=== PATIENT | female | born 1955 | race Caucasian/White ===

== ENCOUNTER → 2018-04-21 09:06 | Outpatient (CLI) | payer BC, SELFPAY ==
[2018-04-21 09:46] LABS: Hemoglobin A1C 6.1 % (0.0-7.0)
[2018-04-21 10:07] LABS: Glucose,Random 122 mg/dL (70-110)
== END ==
PROVIDERS: Visit Provider Physician Assistant
DX: R73.01 Impaired fasting glucose (principal)
CPT/HCPCS: 36415; 82947; 83036

== ENCOUNTER → 2018-07-06 12:19 | Outpatient (CLI) | payer BC, SELFPAY ==
[2018-07-06 13:01] LABS: Hemoglobin A1C 6.3 % (0.0-7.0)
[2018-07-06 13:13] LABS: Cholesterol 234 mg/dL (140-200); Glucose,Fasting 120 mg/dL (60-105); HDL Cholesterol 58 mg/dL (29-89); LDL Cholesterol 128 mg/dL (0-130); Triglycerides 239 mg/dL (30-200); VLDL Cholesterol 48 mg/dL (0-40)
== END ==
PROVIDERS: PCP Family Medicine; Visit Provider Physician Assistant
DX: R73.02 Impaired glucose tolerance (oral) (principal); E78.5 Hyperlipidemia, unspecified
CPT/HCPCS: 36415; 80061; 82947; 83036

== ENCOUNTER → 2018-10-13 10:13 | Outpatient (CLI) | payer BC, SELFPAY ==
[2018-10-13 10:34] LABS: Hemoglobin A1C 6.3 % (0.0-7.0)
[2018-10-13 11:15] LABS: Alanine Aminotransferase 27 U/L (12-78); Albumin Level 3.6 gm/dL (3.4-5.0); Albumin/Globulin Ratio 1.1 (1.1-1.8); Alkaline Phosphatase 100 U/L (46-116); Anion Gap 12.6 mEq/L (5-15); Aspartate Amino Transferase 12 U/L (15-37); Bilirubin,Total 0.5 mg/dL (0.2-1.0); Blood Urea Nitrogen 18 mg/dL (7-18); Calcium 9.8 mg/dL (8.5-10.1); Carbon Dioxide 32 mmol/L (21.0-32.0); Chloride 101 mmol/L (98-107); Chol/HDL Ratio 3.4 (1-3.5); Cholesterol 195 mg/dL (140-200); Creatinine,Serum 0.94 mg/dL (0.55-1.02); Estimated Glomerular Filt Rate 60 ml/min (>60); GFR (African American) 73 ML/MIN (>60); Globulin 3.4 gm/dl (1.3-3.2); Glucose 127 mg/dL (74-106); HDL Cholesterol 57 mg/dL (29-89); LDL Cholesterol 91 mg/dL (0-130); Potassium 4.6 mmoL/L (3.5-5.1); Sodium 141 mmol/L (136-145); Triglycerides 235 mg/dL (30-200); VLDL Cholesterol 47 mg/dL (0-40)
== END ==
PROVIDERS: Visit Provider Physician Assistant
DX: R73.01 Impaired fasting glucose (principal); E78.5 Hyperlipidemia, unspecified
CPT/HCPCS: 36415; 80053; 80061; 83036

== ENCOUNTER → 2019-01-16 15:27 | Outpatient (CLI) | payer BC, SELFPAY ==
--- NOTE | 2019-01-16 15:33 | XR_ITS ---
XR acute abdomen series HISTORY: Vomiting, diarrhea, left-sided pain under the ribs ITS.REASON: GASTROENTERITIS ORDERING PHYSICIAN: DAYAN Daley PATIENT AGE: 63 years COMPARISON: None TECHNIQUE: Upright view of the chest is performed along with upright and supine views of the abdomen and pelvis. FINDINGS: Upright view of the chest shows no acute finding. There is minimal nodular opacity in the right mid to lower lung zone nonspecific possibly due to summation artifact. Consider follow-up chest x-ray to exclude developing nodule or focal parenchymal opacity. Upright and supine views of abdomen show nonspecific nonobstructive bowel gas pattern. There are multiple phleboliths and there has been prior surgery of the lower lumbar spine with fusion at L4-L5 and S1. 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 IMPRESSION: No acute finding. Minimal parenchymal opacity right lower lung zone on
== END ==
PROVIDERS: PCP Family Medicine; Visit Provider Physician Assistant
DX: K52.9 Noninfective gastroenteritis and colitis, unspecified (principal)
CPT/HCPCS: 74021

== ENCOUNTER → 2019-02-01 08:15 | Outpatient (CLI) | payer BC, SELFPAY ==
--- NOTE | 2019-02-01 08:20 | XR_ITS ---
XR chest 2V HISTORY: ITS.REASON: HYPOKALEMIA ORDERING PHYSICIAN: DAYAN Daley PATIENT AGE: 63 years COMPARISON: 09/16/2013 FINDINGS: The cardiomediastinal silhouette and pulmonary vascularity are within normal limits. The lungs are clear without infiltrates, suspicious nodules, or pleural effusions. No acute bony abnormalities. IMPRESSION: Negative chest, no acute finding
[2019-02-01 11:35] LABS: Anion Gap 12.9 mEq/L (5-15); Blood Urea Nitrogen 17 mg/dL (7-18); Calcium 9.8 mg/dL (8.5-10.1); Carbon Dioxide 31 mmol/L (21.0-32.0); Chloride 101 mmol/L (98-107); Creatinine,Serum 0.87 mg/dL (0.55-1.02); Estimated Glomerular Filt Rate 66 ml/min (>60); GFR (African American) 80 ML/MIN (>60); Glucose 132 mg/dL (74-106); Potassium 3.9 mmoL/L (3.5-5.1); Sodium 141 mmol/L (136-145)
== END ==
PROVIDERS: PCP Family Medicine; Visit Provider Physician Assistant
DX: E87.6 Hypokalemia (principal)
CPT/HCPCS: 36415; 71046; 80048

== ENCOUNTER → 2020-01-11 11:06 | Outpatient (CLI) | payer BC, SELFPAY ==
[2020-01-11 16:36] LABS: Alanine Aminotransferase 17 U/L (12-78); Albumin Level 4.1 g/dl (3.5-5.0); Albumin/Globulin Ratio 1.4 (1.1-1.8); Alkaline Phosphatase 81 U/L (38-126); Anion Gap 9.7 mEq/L (5-15); Aspartate Amino Transferase 22 U/L (14-36); Bilirubin,Total 0.5 mg/dl (0.2-1.3); Blood Urea Nitrogen 17 mg/dl (7-17); Calcium 10.2 mg/dl (8.4-10.2); Carbon Dioxide 31 mmol/L (22.0-30.0); Chloride 101 mmol/L (98-107); Estimated Glomerular Filt Rate 72 ml/min (>60); GFR (African American) 88 ML/MIN (>60); Globulin 2.9 g/dL (1.3-3.2); Glucose 112 mg/dl (74-100); HDL Cholesterol 50 mg/dl (40-60); Potassium 4.7 mmoL/L (3.5-5.1); Sodium 137 mmol/L (136-145)
[2020-01-11 16:37] LABS: Cholesterol 301 mg/dl (140-200); Triglycerides 220 mg/dl (30-150); VLDL Cholesterol 44 mg/dL (0-40)
[2020-01-11 16:47] LABS: Direct LDL Cholesterol 213.41 mg/dL (100-129)
== END ==
PROVIDERS: Visit Provider Physician Assistant
DX: E11.9 Type 2 diabetes mellitus without complications (principal); E78.5 Hyperlipidemia, unspecified; I10 Essential (primary) hypertension
CPT/HCPCS: 36415; 80053; 80061; 83036

== ENCOUNTER → 2020-06-13 09:52 | Outpatient (CLI) | payer BC, SELFPAY ==
--- NOTE | 2020-06-13 10:03 | XR_ITS ---
PROCEDURE: XR LUMBAR SPINE MIN 4V CLINICAL INDICATION: LOWER BACK PAIN COMPARISON: CR LS5 LUMBAR SPINE 5 VIEWS from 09/02/2015 FINDINGS: Normal alignment. Minimal lumbar curvature convex right. Postsurgical changes with prior posterior fusion at L4-L5 and S1 with inter pedicular screws and disc spacers. There is mild degenerative disc disease at T12-L1 and L1-L2. No acute fracture or dislocation. IMPRESSION: Postsurgical changes with mild degenerative change as described above, no acute finding Dictated b Peter Mcgarry MD 06/13/2020 13:50 Peter Mcgarry MD in [place] 06/13/2020 13:50
== END ==
PROVIDERS: PCP Family Medicine; Visit Provider Family Medicine
DX: M54.5 Low back pain (principal)
CPT/HCPCS: 72110

== ENCOUNTER 2021-08-23 12:24 | Emergency (ER) | payer OTHER, SELFPAY ==
[2021-08-23 12:24] VITALS: BP 125/80; PULSE 82; RESP 16; TEMP 36.7; O2SAT 97; BMI 32.9
--- NOTE | 2021-08-23 13:25 | HMH.EDUTC ---
[facility] [place] Clinical Impression: Contact dermatitis Qualifiers: Contact dermatitis type: unspecified Contact dermatitis trigger: unspecified trigger Qualified Code(s): L25.9 - Unspecified contact dermatitis, unspecified cause Disposition: Home, Self-Care Condition on Discharge: Good Instructions: Contact Dermatitis, DI for Contact Dermatitis Additional Instructions: Try to avoid contact with the offending substance if you can identify it. Don't start the oral steroids (medrol dose pack)until tomorrow. I put a prescription for a steroid cream on the prescriptions. You could apply this if you are itching really bad in one certain location. Don't put the topical steroids (triamcinolone) on your face or your groin. I put a prescription for keflex (antibiotic) on the prescription also. This is just to cover in case there is a folliculitis aspect to this also. Follow up with your regular doctor. GO TO THE ER FOR ANY WORSENING SYMPTOMS OR CONCERNS Prescriptions: cephALEXin [cephALEXin 500mg capsule] 500 mg PO Q6H 10 Days #40 cap Transmission Status: Received by [id number] methylPREDNISolone [Medrol] 4 mg PO DIRECTED 6 Days #21 packet Transmission Status: Received by [id number] Triamcinolone Acetonide 1 applicatio TP TIDP PRN 7 Days #1 gm PRN Reason: Itching Transmission Status: Received by [id number] Referrals: Caroline Warren MD [Primary Care Provider] - Time of Disposition: 13:36 Medical Decision Making - Medical Records Medical records reviewed: No: I reviewed the patient's medical records. - Tal Inquiry Pt receiving controlled substance: No Vital Signs: 08/23/21 12:24 08/23/21 13:52 Temperature 98.1 F 98.1 F Temperature Source Oral Oral Pulse Rate 82 Pulse Rate [Right] 82 Respiratory Rate 16 16 Blood Pressure 125/80 Blood Pressure [Right Arm] 125/80 Blood Pressure Mean [Right Arm] 95 Blood Pressure Source Automatic Cuff Blood Pressure Source [Right Arm] Automatic Cuff Blood Pressure Position Sitting Blood Pressure Position [Right Arm] Sitting 02 Sat by Pulse Oximetry 97 Oxygen Delivery Method Room Air Room Air Orders (Tests/Meds): ED MEDICATIONS Discontinued Medications Generic Name Dose Route Start Last Admin Trade Name Freq PRN Reason Stop Dose Admin Methylprednisolone Sodium Succinate 125 mg 08/23/21 13:26 08/23/21 13:51 Methylprednisolone Sod Succ 125mg Vial IM 08/23/21 13:27 125 mg ONCE ONE Administration [facility] [place] - General Stated complaint: rash on arm Time Seen by Provider: 08/23/21 13:26 Mode of Arrival: Ambulatory Source of Information: Patient Limitations: No Limitations Description of Symptoms (Recalled from Triage Doc. by RN): Pt advises she has a rash of some sort on her left arm HEENT Symptoms (Recalled from RN notes): No Resp Symptoms (Recalled from RN notes): No Skin Symptoms (Recalled from RN notes): Yes (rash) MS Symptoms (Recalled from RN notes): No Functional Status (Recalled from RN notes): na - History of Present Illness Provider Complaint: She states that for the past 2 days she has had itching and a rash of her left upper arm and her right lower leg. She denies any known exposure to any poison champ or allergens. She states that area itches significantly. - Related Data Previous Rx's Medication Instructions Recorded Triamcinolone Acetonide 1 applicatio TP TIDP PRN 7 Days #1 08/23/21 gm cephALEXin [cephALEXin 500mg 500 mg PO Q6H 10 Days #40 cap 08/23/21 capsule] methylPREDNISolone [Medrol] 4 mg PO DIRECTED 6 Days #21 08/23/21 packet Allergies Allergy/AdvReac Type Severity Reaction Status Date / Time No Known Allergies Allergy Verified 08/23/21 12:44 - Worker's Comp Is this a Worker's Comp case?: No [facility] History - Hepatitis A Screen Drug use history?: No High risk sexual behaviors?: No History of sexually transmitted infection?: No Currently emplo
[2021-08-23 13:52] VITALS: BP 125/80; PULSE 82; RESP 16; TEMP 36.7; O2SAT 98
== END 2021-08-23 14:05 | disposition home or self-care (01) ==
LOC: UTC 12:27
PROVIDERS: Emergency Provider Nurse Practitioner Family; PCP Family Medicine
DX: L25.9 Unspecified contact dermatitis, unspecified cause (principal)
CPT/HCPCS: 96372; 99202; G0463

== ENCOUNTER → 2021-12-04 11:43 | Outpatient (CLI) | payer MEDICARE, SELFPAY ==
[2021-12-04 13:57] LABS: Hemoglobin A1C 6.3 % (4.0-6.0)
[2021-12-04 14:03] LABS: Alanine Aminotransferase 22 U/L (12-78); Albumin Level 4.1 g/dl (3.5-5.0); Albumin/Globulin Ratio 1.6 (1.1-1.8); Alkaline Phosphatase 62 U/L (38-126); Anion Gap 11.2 mEq/L (5-15); Aspartate Amino Transferase 30 U/L (14-36); Bilirubin,Total 0.6 mg/dl (0.2-1.3); Blood Urea Nitrogen 16 mg/dl (7-17); Calcium 9.8 mg/dl (8.4-10.2); Carbon Dioxide 33 mmol/L (22.0-30.0); Chloride 100 mmol/L (98-107); Chol/HDL Ratio 3.5 (1-3.5); Cholesterol 177 mg/dl (140-200); Estimated Glomerular Filt Rate 84 ml/min (>60); GFR (African American) 102 ML/MIN (>60); Globulin 2.5 g/dL (1.3-3.2); Glucose 118 mg/dl (74-100); HDL Cholesterol 50 mg/dl (40-60); Potassium 5.2 mmoL/L (3.5-5.1); Sodium 139 mmol/L (136-145); Total Protein,Serum 6.6 g/dl (6.3-8.2); Triglycerides 205 mg/dl (30-150); VLDL Cholesterol 41 mg/dL (0-40)
[2021-12-04 14:14] LABS: Direct LDL Cholesterol 106.51 mg/dL (100-129)
== END ==
PROVIDERS: Visit Provider Physician Assistant
DX: E11.9 Type 2 diabetes mellitus without complications (principal); E78.5 Hyperlipidemia, unspecified; Z79.84 Long term (current) use of oral hypoglycemic drugs
CPT/HCPCS: 36415; 80053; 80061; 83036

== ENCOUNTER → 2022-01-05 12:29 | Outpatient (CLI) | payer MEDICARE, SELFPAY ==
[2022-01-05 14:36] LABS: Chloride 96 mmol/L (98-107)
[2022-01-05 14:37] LABS: Potassium 3.9 mmoL/L (3.5-5.1); Sodium 133 mmol/L (136-145)
[2022-01-05 14:40] LABS: Anion Gap 10.9 mEq/L (5-15); Blood Urea Nitrogen 18 mg/dl (7-17); Calcium 8.8 mg/dl (8.4-10.2); Carbon Dioxide 30 mmol/L (22.0-30.0); Estimated Glomerular Filt Rate 84 ml/min (>60); GFR (African American) 102 ML/MIN (>60); Glucose 117 mg/dl (74-100)
== END ==
PROVIDERS: Visit Provider Family Medicine
DX: E87.6 Hypokalemia (principal)
CPT/HCPCS: 36415; 80048

== ENCOUNTER → 2022-02-23 10:07 | Outpatient (CLI) | payer MEDICARE, SELFPAY ==
[2022-02-23 10:44] LABS: Influenza A, PCR Not Detected (NotDetected); Influenza B, PCR Not Detected (NotDetected)
[2022-02-23 12:00] LABS: Coronavirus 19, PCR Detected (NotDetected)
== END ==
PROVIDERS: PCP Family Medicine; Visit Provider Family Medicine
DX: U07.1 COVID-19 (principal)
CPT/HCPCS: C9803; U0003; U0005

== ENCOUNTER → 2022-12-21 11:10 | Outpatient (CLI) | payer MEDICARE, SELFPAY ==
[2022-12-21 11:36] LABS: Adenovirus F 40/41, stool Not Detected (NotDetected); Astrovirus Not Detected (NotDetected); Campylobacter Not Detected (NotDetected); Clostridium Difficile A/B, PCR Not Detected (NotDetected); Cryptosporidium Not Detected (NotDetected); Cyclospora Cayetanesis Not Detected (NotDetected); Entamoeba histolytica Not Detected (NotDetected); Enteroaggregative E coli Not Detected (NotDetected); Enteropathogenic E coli Not Detected (NotDetected); Enterotoxigenic E coli Not Detected (NotDetected); Giardia lamblia Not Detected (NotDetected); Norovirus Not Detected (NotDetected); Plesimonas Shigalloides, PCR Not Detected (NotDetected); Rotavirus A Not Detected (NotDetected); Salmonella, PCR Not Detected (NotDetected); Sapovirus Not Detected (NotDetected); Shiga-like toxin E coli Not Detected (NotDetected); Shigella Enterovasive E coli Not Detected (NotDetected); Vibrio Cholerae Not Detected (NotDetected); Vibrio, PCR Not Detected (NotDetected); Yersinia Entercolitica, PCR Not Detected (NotDetected)
== END ==
PROVIDERS: PCP Physician Assistant; Visit Provider Physician Assistant
DX: R19.7 Diarrhea, unspecified (principal)
CPT/HCPCS: 87506; 87507

== ENCOUNTER → 2023-09-01 08:12 | Outpatient (CLI) | payer MEDICARE, SELFPAY ==
--- NOTE | 2023-09-01 08:15 | MM_ITS ---
PROCEDURE INFORMATION: Exam: MG Bilateral Screening 3D Mammography Exam date and time: 09/01/2023 8:21 AM Age: 67 years old Clinical indication: Screening examination; No personal or family history of breast cancer TECHNIQUE: Imaging protocol: Bilateral Screening tomosynthesis and 2D mammography including computer-aided detection (CAD) when performed. COMPARISON: 1. MG DMSB DIG MAMM-SCREEN RADHA 08/19/2015 4:40 PM 2. MG DMSB DIGITAL MAMM-SCREEN BILATERAL 08/20/2010 10:00 AM FINDINGS: MAMMOGRAPHY: Breast composition: There are scattered areas of fibroglandular density. Mass: None. Architectural distortion: None. Calcifications: No suspicious calcifications. Asymmetric density: None. Skin thickening: None. Axillary adenopathy: None. IMPRESSION: No mammographic evidence of malignancy. Annual screening is recommended unless otherwise clinically indicated. ASSESSMENT: BI-RADS Category 1: Negative
--- NOTE | 2023-09-01 08:16 | XR_ITS ---
FINAL REPORT CLINICAL HISTORY: POST MENOPAUSAL COMPARISON: None FINDINGS: Using one third, the bone mineral density of the left forearm is 0.665 g/cm2, corresponding to T-score of -0.5, within normal limits. Using the left hip, the bone mineral density of the femoral neck is 0.900 g/cm2, corresponding to a T-score of -0.3, within normal limits. Using the right hip, the bone mineral density of the femoral neck is 0.809 g/cm2, corresponding to a T-score of -0.4, within normal limits. FRAX not reported because all T-scores at or above -1.0. NOTE: T-score: Standard deviation compared with peak bone mass of young adult mean. *Following the recommendations of the International Society of Bone densitometry, classification of hip BMD is based on the lower of two T-scores; total hip or femoral neck. IMPRESSION: Normal bone mineral density of the lumbar spine and hips. Reviewed, Interpreted and Dictated by Memo Riley III, MD Transcribed by Rosalinda Cintron Authenticated and [facility]
== END ==
PROVIDERS: PCP Physician Assistant; Visit Provider Family Medicine
DX: Z12.31 Encounter for screening mammogram for malignant neoplasm of breast (principal); Z78.0 Asymptomatic menopausal state
CPT/HCPCS: 77063; 77067; 77080

== ENCOUNTER 2024-03-14 10:03 | Outpatient (CLI) | payer MEDICARE, SELFPAY ==
--- NOTE | 2024-03-14 10:10 | XR_ITS ---
FINAL REPORT CLINICAL HISTORY: LT KNEE PAIN COMPARISON: None FINDINGS: Three views of the left knee reveal no evidence of fracture or dislocation. The bony alignment is normal. There is mild degenerative change. There is no evidence of joint effusion. No localized soft tissue abnormality is seen. IMPRESSION: Mild degenerative change without acute abnormality identified. Reviewed, Interpreted and Dictated by Memo Riley III, MD Transcribed by Rosalinda Cintron Authenticated and [facility]
== END 2024-03-14 23:59 | disposition home or self-care (01) ==
LOC: RAD 10:05
PROVIDERS: PCP Family Medicine; Visit Provider Physician Assistant
DX: M25.562 Pain in left knee (principal)
CPT/HCPCS: 73562

== ENCOUNTER 2025-04-19 11:28 | Outpatient (CLI) | payer MEDICARE, SELFPAY ==
--- OUTSIDE RECORDS SUMMARY | 2024-07-04 10:00 | XMS_ITS ---
Author Organization [facility] Address [address] [place] [id number] Care Team Providers Care Modern Languages Professor Name Role Phone Nyasia Warren Primary Care Provider Carole Muir [phone] Allergies No Known Allergies Results Component Value Reference Range Notes Rapid Strep- Inhouse Reviewed date:07/04/2024 02:28:09 PM Interpretation:Negative Performing Lab: Notes/Report: Negative strep test neg Covid test (in house) Reviewed date:07/04/2024 02:27:55 PM Interpretation:Negative Performing Lab: Notes/Report: Negative Result: neg REASON FOR VISIT possible strep throat Medications Medication SIG (Take, Route, Frequency, Duration) Notes Start Date End Date Status hydroCHLOROthiazide 50 MG 1 tab(s) orall y once a day for 90 days Active Cefdinir 300 MG 1 cap(s) Orally Two times a day 07/04/2024 Active Rosuvastatin Calcium 5 MG 1 cap(s) orall y once a day for 90 days Active Ramipril 10 MG 1 cap(s) orally Two times a day for 90 days Active metFORMIN HCl 500 MG 1 tab(s) orally onc e a day (in the morning) for 90 days Active Aspirin 81 81 MG as directed oral QD for 90 days 11/16/2016 Not-Taking Cyclobenzaprine HCl 5 MG 1 tablet at bed time as needed Orally three times a day as needed 02/09/2024 Not-Taking Medrol 4 MG as directed orally daily for 6 days 03/14/2024 Active Zoloft 100 MG 1 tab orally once a day for 90 days Active Vital Signs Blood pressure systolic 130 mm Hg 07/04/20 24 Blood pressure diastolic 68 mm Hg 024 Heart Rate 93 /min 07/04/2024 Height 62 in 07/04/2024 Weight 188.2 lbs 07/04/2024 BMI 34.42 kg/m2 07/04/2024 Encounters Encounter Location Date Provider Diagnosis [facility] [address] [place] [id number] 07/04/2024 Carole Muir Acute bronchitis J20 .9 Assessments Encounter Date Diagnosis (ICD Code) Assessment Notes Treatment Notes Treatment Clinical Notes Section Notes 07/04/2024 Acute bronchitis (ICD-10 - J20.9) Plan Of Treatment Medication Medication Name Sig Start Date Stop Date Notes Cefdinir 300 MG 1 cap(s) Orally Two times a day 07/04/2024 Next Appt Details Follow Up: prn, Reason: Progress Notes * MARYLOU JIMENEZDOB:1955 (69 yo F)Acc No.[id number]:07/04/2024 Progress Notes Patient: MARYLOU NORRIS Provider: Carole Muir M.D. :1955 A ge:68 Y S ex:Female Date:07/04/2024 Address:[address] [place] [address] [id number] Pcp:Nyasia Warren Subjective: * Chief Complaints: * 1 . Possible strep throat. * HPI: E NT/respiratory: Pt presents today with cough, congestion, and that her sinuses are stopped up. Pt sts she has not had any fever. Pt c/o somewhat having some ear pain in both of her ears. Denies : Fever. D enies : Chest Pain. D enies : Short of Breath. * ROS: D ERMATOLOGY: no R elvis. n o H nguyen. G ASTROENTEROLOGY: no V omiting. n o D iarrhea. U ROLOGY: no D ifficulty urinating. n o B lood in urine. * Medical History: H ypertension, Uterine fibroids, Spondylolysis with spondylolisthesis, Hyperlipidemia, mild MVp, Hepatitis A. * Surgical History: B TL , Total Hysterectomy 01/2006, Blepharectomy, bilateral 04/2013, L4-5 L5-S1 posterior lumbar interbody fusion 12/28/16. * Hospitalization/Major Diagno stic Procedure: H ER had xray of foot may 2010. * Family History: F ather: . M other: . 1 brother(s) , 2 sister(s) . 3 son(s) . . * Social History: C URRENT TOBACCO USE S moking Status: Patient does NOT smoke. C affeine: yes, frequency:daily. Home smoke detector use: yes. Marital Status: . Past smoking status: no, Smoking status: Does not smoke. Alcohol: no. * Medications: T aking Medrol 4 MG Tablet Therapy Pack as directed orally daily , Taking Zoloft 100 MG Tablet 1 tab orally once a day , Taking Rosuvastatin Calcium 5 MG Tablet 1 cap(s) orally once a day , Taking Ramipril 10 MG Capsule 1 cap(s) orally Two times a day , Taking metFORMIN HCl 500 MG Tablet 1 tab(s) orally once a day (in the morning) , Taking hydroCHLOROthiazide 50 MG Tablet 1 tab(s) orally once a day , Not-Taking Aspirin 81 81 MG Tablet Delayed Release as directed oral QD , Not-Taking Cyclobenzaprine HCl 5 MG Tablet 1 tablet at bedtime as needed Orally three times a day as needed , Medication List reviewed and reconciled with the patient * Allergies: N .K.D.A. Objective: * Vitals: W t:188.2, Temp:99.1, BP:130/68, HR:93, Nurse:, Ht: 62, BMI:34.42. * Examination: E NT/Respiratory: General Appearance: N AD. Eyes: P ERRLA, sclera clear. Ears: TMs with decreased LR. Nose : n ormal, no lesions, nares patent. Oral cavity : n o erythema or exudate seen on pharynx. Neck : n o cervical lymphadenopathy. Heart : R RR, normal S1 S2, no murmurs. Lungs: coarse BS and occ. rhonchi. Assessment: * Assessment: 1. A cute bronchitis - J20.9 (Primary) Plan: * Treatment: Value Reference Range s trep test neg * Daxa Castellanos 07/04/2024 2:26 :12 PM > results reviewed w/ pt in office ?LAB: Covid test (in house) (Collection Date & Time - 07/04/2024)?Negative* Value Reference Range R esult: neg * Daxa Castellanos 07/04/2024 2:27 :47 PM > results reviewed w/ pt in office * Procedure Codes: G 2211 Complex e/[place], [address] STREP A ASSAY W/OPTIC, Modifiers: QW , 28814 COVID TEST IN HOUSE, Modifiers: QW * Follow Up: p rn * Billing Information: * Visit Code: 66134 Office Visit, Est Pt., Level 3. * Procedure Codes: G2211 Complex e/[place]. [address] STREP A ASSAY W/OPTIC. Modifiers: QW 61954 COVID TEST IN HOUSE. Modifiers: QW * Electronic signature of Carole Muir MD on 04/21/2025 at 11:31 AM EDT Sign off status: Pending * Provider: Carole Muir M.D. Date: 0 07/04/2024 Generated for Janenei ng/Geniag/eTransmitting on: 0 04/21/2025 11:31 AM EDT History and Physical Notes * HPI (History of Present Illness) Category Sub-Category Detail Notes Category Not es ENT/respiratory Short of Breath Chest Pain Fever Examination Category Sub-Category Detail Notes Category Not es ENT/Respiratory Oral cavity : no erythema or exudate s een on pharynx Ears: TMs with decreased L R Neck : no cervical lymphade nopathy Heart : RRR, normal S1 S2, n o murmurs Lungs: coarse BS and occ. r honchi General Appearance: NAD Nose : normal, no lesions, nares patent Eyes: PERRLA, sclera clear
--- OUTSIDE RECORDS SUMMARY | 2024-07-15 09:30 | XMS_ITS ---
Author Organization [facility] Address [address] [place] [id number] Care Team Providers Care Machine Adjuster Helper Name Role Phone Nyasia Warren Primary Care Provider Dora Mansfield Unavailable [phone] Allergies No Known Allergies Results Component Value Reference Range Notes CBC Fingerstick (in house) Reviewed date:07/15/2024 03:11:30 PM Interpretation: Performing Lab: Notes/Report: wbc 8.0 3.5 - 10 lym 10.7 15 - 50 mid 3.3 2 - 15 gran 86.0 35 - 80 rbc 5.33 3.5 - 5.5 hgb 15.3 11.5 - 16.5 hct 47.7 35 - 55 mcv 89.5 75 - 100 mch 28.8 25 - 35 mchc 32.1 31 - 38 plat 187 100 - 400 REASON FOR VISIT throwing up dark liquid and dark stool Medications Medication SIG (Take, Route, Frequency, Duration) Notes Start Date End Date Status hydroCHLOROthiazide 50 MG 1 tab(s) orall y once a day for 90 days Active metFORMIN HCl 500 MG 1 tab(s) orally onc e a day (in the morning) for 90 days Active Zoloft 100 MG 1 tab orally once a day for 90 days Active Ramipril 10 MG 1 cap(s) orally Two times a day for 90 days Active Rosuvastatin Calcium 5 MG 1 cap(s) orall y once a day for 90 days Active Vital Signs Blood pressure systolic 100 mm Hg 07/15/20 24 Blood pressure diastolic 60 mm Hg 024 Heart Rate 80 /min 07/15/2024 Height 62 in 07/15/2024 Weight 186.8 lbs 07/15/2024 BMI 34.16 kg/m2 07/15/2024 Encounters Encounter Location Date Provider Diagnosis [facility] [address] [facility] [address] [place] [id number] 07/15/2024 Dora Mansfield Gastroenteritis K52. 9 Assessments Encounter Date Diagnosis (ICD Code) Assessment Notes Treatment Notes Treatment Clinical Notes Section Notes 07/15/2024 Gastroenteritis (ICD-10 - K52.9) resolved; will monitor stools; had neg cologuard 09/2023; bland diet with limited pop/caffeine Plan Of Treatment Treatment Notes Assessment Notes Gastroenteritis resolved; will monit or stools; had neg cologuard 09/2023; bland diet with limited pop/caffeine Next Appt Details Follow Up: prn, Reason: Progress Notes * MARYLOU JIMENEZDOB:1955 (69 yo F)Acc No.[id number]:07/15/2024 Progress Notes Patient: MARYLOU NORRIS Provider: DANNIELLE Del Toro :1955 A ge:68 Y S ex:Female Date:07/15/2024 Address:[address] [place] [address] [id number] Pcp:Nyasia Warren Subjective: * Chief Complaints: * 1 . Throwing up dark liquid and dark stool. * HPI: G astroenterology: 68 year old female presents with c/o Abdominal Pain w as cramping. c/o Vomiting P t is here today with c/o throwing up dark liquid and having dark stool. Pt sts this started night. Pt sts she is also having stomach cramps. Pt sts she has threw up night and some Monday morning. Pt sts she threw up quite a bit during that period, and it was a dark liquidy color. c/o Abdominal Distension. Denies : Fever. D enies : Blood in Stool. D enies : Belching. stool was soft ; she describes more of a dark green stool color; voiding QS. * ROS: U ROLOGY: no D ifficulty urinating. n o U rinary incontinence. n o V oiding dysfunction. * Medical History: H ypertension, Uterine fibroids, [...] smoke. Alcohol: no. * Medications: T aking Zoloft 100 MG Tablet 1 tab orally [...] 1 tab(s) orally once a day , Discontinued Medrol 4 MG Tablet Therapy Pack as directed orally daily , Discontinued Cefdinir 300 MG Capsule 1 cap(s) Orally Two times a day , Medication List reviewed and reconciled with the patient * Allergies: N .K.D.A. Objective: * Vitals: W t:186.8, Temp:98.1, BP:100/60, HR:80, O2 Sat:97% on RA, Nurse:[facility], Ht: 62, BMI:34.16. * Examination: G eneral Examination: General Appearance: NAD, appears healthy, alert, pleasant. Oral cavity: mucosa moist and WNL, no erythema. Heart: RRR. Lungs: CTAB A&P. Abdomen: bowel sounds present, soft; mild point tenderness right mid abdomen;, no guarding or rigidity, no organomegaly or masses. Neurologic Exam: alert and oriented. Extremities: no leg edema. Assessment: * Assessment: 1. G astroenteritis - K52.9 (Primary) Plan: * Treatment: Value Reference Range w bc 8.0 3.5 - 10 * l ym 10.7 15 - 50 * m id 3.3 2 - 15 * g ran 86.0 35 - 80 * r bc 5.33 3.5 - 5.5 * h gb 15.3 11.5 - 16.5 * h ct 47.7 35 - 55 * m cv 89.5 75 - 100 * m ch 28.8 25 - 35 * m chc 32.1 31 - 38 * p lat 187 100 - 400 * Daax Castellanos 07/15/2024 2:12: 21 PM > Provider reviewed results while patient in office.Dora Mansfield 07/15/2024 3:11:27 PM > Notes: resolved; will monitor stools; had neg cologuard 09/2023; bland diet with limited pop/caffeine?? * Procedure Codes: 9 4760 [place], [address] CAPILLARY BLOOD DRAW, 08633 CBC WITH AUTO DIFF * Follow Up: p rn * Billing Information: * Visit Code: 55709 Office Visit, Est Pt., Level 3. * Procedure Codes: [address] [place]. [address] CAPILLARY BLOOD DRAW. 83367 CBC WITH AUTO DIFF. * Electronic signature of Bernadette Mansfield APRN on 04/21/2025 at 11:32 AM EDT Sign off status: Pending * Provider: DANNIELLE Del Toro Date: 0 07/15/2024 Generated for Aldo diaz/Lc/eTransmitting on: 0 04/21/2025 11:32 AM EDT History and Physical Notes * HPI (History of Present Illness) Category Sub-Category Detail Notes Category Not es Gastroenterology Fever stool was s oft ; she describes more of a dark green stool color; voiding QS Vomiting Pt is here today wit h c/o throwing up dark liquid and having dark stool. Pt sts this started night. Pt sts she is also having stomach cramps. Pt sts she has threw up night and some Monday morning. Pt sts she threw up quite a bit during that period, and it was a dark liquidy color Abdominal Pain was cramping Blood in Stool Abdominal Distension Belching Examination Category Sub-Category Detail Notes Category Not es General Examination Heart: RRR Lungs: CTAB A&P Abdomen: bowel sounds present , soft; mild point tenderness right mid abdomen;, no guarding or rigidity, no organomegaly or masses Extremities: no leg edema General Appearance: NAD, appears healthy , alert, pleasant Neurologic Exam: alert and oriented Oral cavity: mucosa moist and WNL , no erythema
--- OUTSIDE RECORDS SUMMARY | 2024-10-09 10:15 | XMS_ITS ---
Author Organization [facility] Address [address] [place] [id number] Care Team Providers Care Electric Power Superintendent Name Role Phone Nyasia Warren Primary Care Provider [phone] Najma Fox Unavailable [phone] Allergies No Known Allergies REASON FOR VISIT poss thrush, flu vac Medications Medication SIG (Take, Route, Frequency, Duration) Notes Start Date End Date Status Rosuvastatin Calcium 5 MG 1 cap(s) orall y once a day for 90 days Active Ramipril 10 MG 1 cap(s) orally Two times a day for 90 days Active Zoloft 100 MG 1 tab orally once a day for 90 days Active hydroCHLOROthiazide 50 MG 1 tab(s) orall y once a day for 90 days Active metFORMIN HCl 500 MG 1 tab(s) orally onc e a day (in the morning) for 90 days Active Nystatin 353322 UNIT/ML 5 ml Mouth/Throa t Four times a day 10/09/2024 Active Immunizations Vaccine Route Administration Date Status Comme nts Fluzone High Dose (65yr and older) IM Intramuscular 10/09/2024 Administered Vital Signs Blood pressure systolic 120 mm Hg 10/09/20 24 Blood pressure diastolic 66 mm Hg 024 Heart Rate 84 /min 10/09/2024 Height 62 in 10/09/2024 Weight 187.2 lbs 10/09/2024 BMI 34.24 kg/m2 10/09/2024 Encounters Encounter Location Date Provider Diagnosis [facility] [address] [facility] [address] [place] [id number] 10/09/2024 Najma Fox Thrush B37.0 Assessments Encounter Date Diagnosis (ICD Code) Assessment Notes Treatment Notes Treatment Clinical Notes Section Notes 10/09/2024 Thrush (ICD-10 - B37.0) 10/09/2024 Other Patient will come back for fasting labs (CBC, CMP, A1C, TSH, Lipid) Plan Of Treatment Medication Medication Name Sig Start Date Stop Date Notes Nystatin 535769 UNIT/ML 5 ml Mouth/Throat Four times a day 10/09/2024 Treatment Notes Assessment Notes Other Patient will come ba for fasting labs (CBC, CMP, A1C, TSH, Lipid) Next Appt Details Follow Up: prn, Reason: Progress Notes * MARYLOU JIMENEZDOB:1955 (69 yo F)Acc No.[id number]:10/09/2024 Progress Notes Patient: MARYLOU NORRIS Provider: DAYAN Mckeon :1955 A ge:69 Y S ex:Female Date:10/09/2024 Address:[address] [place] [address] , [id number] Pcp:Nyasia Warren Subjective: * Chief Complaints: * 1 . Poss thrush, flu vac. * HPI: E NT/respiratory: Pt presents today for possible thrush. Pt sts that she has had it for about a week and a half. Pt sts that it has improved some but sts that she is still having some issues. Pt sts that she has been rinsing with peroxide and water. H PI: Pt would like to get any immunizations today that are recommended. * ROS: D ERMATOLOGY: no R elvis. [...] smoke. Alcohol: no. * Medications: T aking metFORMIN HCl 500 MG Tablet 1 tab(s) orally once a day (in the morning) , Taking Zoloft 100 MG Tablet 1 tab orally once a day , Taking hydroCHLOROthiazide 50 MG Tablet 1 tab(s) orally once a day , Taking Rosuvastatin Calcium 5 MG Tablet 1 cap(s) orally once a day , Taking Ramipril 10 MG Capsule 1 cap(s) orally Two times a day , Medication List reviewed and reconciled with the patient * Allergies: N .K.D.A. Objective: * Vitals: W t:187.2, Temp:98.3, BP:120/66, HR:84, Nurse:GERALDO, Ht: 62, BMI:34.24. * Examination: E NT/Respiratory: General Appearance: N AD. Ears: a uditory canals normal bilaterally, TM's WNL. Nose : n ormal, no lesions, nares patent. Sinuses : non tender bilaterally. Oral cavity : white patches on the buccal mucosa and tongue. Neck : n o cervical lymphadenopathy. Heart : R RR, normal S1 S2, no murmurs. Lungs: c lear to auscultation bilaterally. Assessment: * Assessment: 1. T hrush - B37.0 (Primary) Plan: * Treatment: 2. O thers Notes: Patient will come back for fasting labs (CBC, CMP, A1C, TSH, Lipid) * Immunizations: Fluzone High Dose (65yr and older) : 0.5 mL (Route: Intramuscular) given by Daxa Castellanos on Left Deltoid * Follow Up: p rn * Billing Information: * Visit Code: 14918 Office Visit, Est Pt., Level 3. * Procedure Codes: * Electronic signature of DAYAN Kerr on 04/21/2025 at 11:32 AM EDT Sign off status: Pending * Provider: DAYAN Mckeon Date: 1 12/10/2023 Generated for Janenei ng/Fazuleymag/eTransmitting on: 0 04/21/2025 11:32 AM EDT History and Physical Notes * Examination Category Sub-Category Detail Notes Category Not es ENT/Respiratory Oral cavity : white patches on the buccal mucosa and tongue Sinuses : non tender bilateral ly Ears: auditory canals norm al bilaterally, TM's WNL Neck : no cervical lymphade nopathy Heart : RRR, normal S1 S2, n o murmurs Lungs: clear to auscultatio n bilaterally General Appearance: NAD Nose : normal, no lesions, nares patent
--- OUTSIDE RECORDS SUMMARY | 2025-04-21 11:31 | XMS_ITS | Patient Health Record ---
Author Organization [facility] Address [address] [place] [id number] Care Team Providers Care Senior Solutions Architect Name Role Phone Nyasia Warren Primary Care Provider Carole Muir Unavailable [phone] Dora Mansfield Unavailable [phone] Najma Fox Unavailable [phone] Allergies No Known Allergies Results Component Value [...] - 38 plat 187 100 - 400 Rapid Strep- Inhouse Reviewed date:07/04/2024 02:28:09 PM Interpretation:Negative Performing Lab: Notes/Report: Negative strep test neg Covid test (in house) Reviewed date:07/04/2024 02:27:55 PM Interpretation:Negative Performing Lab: Notes/Report: Negative Result: neg Medications Medication SIG (Take, Route, Frequency, Duration) Notes Start Date End Date Status hydroCHLOROthiazide 50 MG TAKE 1 TABLET BY MOUTH ONCE DAILY for 30 Active Nystatin 915716 UNIT/ML 5 ml Mouth/Throa t Four times a day 10/09/2024 Active Sertraline HCl 100 MG TAKE 1 TABLET BY M OUTH ONCE DAILY for 30 Active Ramipril 10 MG TAKE 1 CAPSULE BY MO UTH TWICE DAILY for 30 Active Rosuvastatin Calcium 5 MG TAKE 1 TABLET BY MOUTH ONCE DAILY for 30 Active metFORMIN HCl 500 MG TAKE 1 TABLET BY MO UTH ONCE DAILY IN THE MORNING for 30 Active Immunizations Vaccine Route Administration Date Status Comme nts Flublok IM Intramuscular 10/17/2018 Administered Fluzone High Dose (65yr and older) Unknown 09/05/2022 Administered Fluzone High Dose (65yr and older) IM Intramuscular 09/21/2023 Administered Fluzone High Dose (65yr and older) IM Intramuscular 10/09/2024 Administered Fluzone Intradermal Quad private(18-64yrs) ID Intradermal 09/07/2015 Administered Fluzone Intradermal Quad private(18-64yrs) ID Intradermal 08/05/2016 Administered Fluzone Quad (6months&older) IM Intramuscular 08/14/2017 Administered PNEUMOVAX 23 VACCINE IM Intramuscular 03/31/2018 Administe red COVID 19 Moderna Unknown 11/11/2020 Administered COVID 19 Moderna Unknown 12/09/2020 Administered COVID 19 Moderna Unknown 09/22/2021 Administered Prevnar (PCV20) IM Intramuscular 09/21/2023 Administered Tetanus Tdap-Adacel (over 7yrs) IM Intramuscular 08/14/2017 Administered xFlu shot-36 months and older IM Intramuscular 09/29/2010 Administered xFluzone (6mos and older)-trivalent IM Intramuscular 08/22/2011 Administered xFluzone (6mos and older)-trivalent IM Intramuscular 10/09/2013 Administered Problems Problem Type SNOMED Code ICD Code Onset Dates Problem Status W/U Status Risk Notes Problem Essential hypertension (03606767) Essential (primary) hypertension (I10) Active confirmed Problem Hyperlipidemia (98260060) Hyperlipidemia (E78.5) Active confirmed Problem 375851109 Mixed hyperlipidemia (E78.2) Active confirmed Problem Primary insomnia (5083989) Primary insomnia (F51.01) Active confirmed Problem 27226204 Other chronic pain (G89.29) Active confirmed Problem Obese class II (728852286606499) BMI 35.0-35.9,adult (Z68.35) Active confirmed Problem Depression (916494968) Depression (F32.9) Active confirmed Problem 342298700 Type 2 diabetes mellitus without complication, without long-term current use of insulin (E11.9) Active confirmed Vital Signs Heart Rate 84 /min 10/09/2024 Blood pressure diastolic 66 mm Hg 10/09/2024 Height 62 in 10/09/2024 Blood pressure systolic 120 mm Hg 10/09/2024 Weight 187.2 lbs 10/09/2024 BMI 34.24 kg/m2 10/09/2024 Encounters Encounter Location Date Provider Diagnosis [facility] [address] [place] [address] [place] [id number] 07/04/2024 R Trey Muir Acute bronchitis J20 .[address] [place] [id number] 07/15/2024 Dora Mansfield Gastroenteritis K52. [address] [place] [phone] 10/09/2024 Najma Ruddy Thrush B37.0 Assessments Encounter Date Diagnosis (ICD Code) Assessment Notes Treatment Notes Treatment Clinical Notes Section Notes 07/04/2024 Acute bronchitis (ICD-10 - J20.9) 07/15/2024 Gastroenteritis (ICD-10 - K52.9) resolved; will monitor stools; had neg cologuard 09/2023; bland diet with limited pop/caffeine 10/09/2024 Thrush (ICD-10 - B37.0) 10/09/2024 Other Patient will come back for fasting labs (CBC, CMP, A1C, TSH, Lipid) Plan Of Treatment No Information Insurance Providers Payer Name Payer Address Payer Phone Subscriber Number Group Number Insured Name Patient Relationship to Insured Coverage Start Date Coverage End Date MEDICARE PART B [address] [address] [place] [id number] [place], [place] Self - patient is the insured [facility] [employer] [address] [place] [address] [id number] [place], [place] Self - patient is the insured Medications Administered Medication Instructions Date of Administration Dosage Notes Depo- Medrol 40 mg/ml 09/02/2015 1 mL Depo- Medrol 40 mg/ml 06/20/2016 1 mL Depo- Medrol 40 mg/ml 06/20/2016 1 mL Depo- Medrol 40 mg/ml 06/20/2016 1 mL Dexamethasone 05/20/2013 Medical (General) History Medical History History ICD Code Hypertension uterine fibroids spondylolysis with spondylolisthesis hyperlipidemia mild MVp Hepatitis A Surgical History Surgery Date(Month/Year) BTL Total Hysterectomy 01/2006 Blepharectomy, bilateral 04/2013 L4-5 L5-S1 posterior lumbar interbody fu sandra 12/28/16 Hospitalization History Reason Date(Month/Year) [facility] had xray of foot may 2010
--- OUTSIDE RECORDS SUMMARY | 2025-04-21 11:32 | XMS_ITS | Data Portability ---
Author Organization [facility] Address [address] [facility] [place] [address] Assessment Encounter Date Assessment Date Assessment LastModified by Organization Details LastModified Time 11/24/2016 11/24/2016 Mrs. 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 She has mechanical back pain and a left L5 radiculopathy. She's failed conservative treatment consisting of physical therapy. Symptoms are going on for more than 6 months. We talked about options of treatment. We talked about an epidural injection. I explained the indications risks and benefits of the lumbar fusion. I recommended the fusion mostly because of her progressive and severe symptoms and significant instability she wants to proceed with surgery. We will schedule an L5-S1 posterior lumbar interbody fusion using our intraoperative aero CT scan and brain lab neuro navigation. She'll be in the hospital for 2 or 3 days after surgery. 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 I will keep you up-to-date with her progress. jessy Not available 11/24/2016 09:08:30 01/09/2017 01/09/2017 Routine staple removal s/p L5-S1 PLIF 12/28/16. Her incision healed nicely, went ahead w/ the removal. She handled the procedure well. liam Not available 01/09/2017 10:31:32 01/26/2017 01/26/2017 Ms. Jimenez is doin g well after undergoing an L4-5 L5-S1 fusion. Her severe back and radicular leg pain have resolved. X-rays look great. Her incision is healing nicely. She is neurologically intact and happy. I'll see her back in 2 months with x-rays. 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 She's can stay out of work still for couple months. She's getting gradually increase her activity level so that we get her back to work at the next visit she will need much in the way of restrictions. I'll send you a note at follow-up. Thanks for having me participate in her care. jessy Not available 01/26/2017 11:11:01 04/04/2017 04/04/2017 Mrs. Jimenez is doing very well after undergoing a 2 level lumbar fusion. Severe back and leg symptoms have resolved. I Cooper go back to work next week. She'll need to work half days for a month. I can see her on a when necessary basis. Her sons getting this week. I wished her the best with this. I'll see her on a when necessary basis. Thanks for having me participate in her care. jessy Not available 04/04/2017 10:56:23 01/20/2022 01/20/2022 Status post L4-S 1 fusion in 2017. His done wonderfully. Has recurrent radicular pain throughout the right lower extremity following an L4 pattern. Because of her fusion she would be at significant risk to have adjacent level disease. The distribution of her pain makes me concerned that there might be something going on at L3-4 as far as severe nerve impingement. She also has neck right shoulder pain and right hand numbness with hyperreflexia. I think she needs to undergo an MRI scan lumbar with and without contrast, cervical MRI scan without contrast to rule out cord compression, CT lumbar scan without contrast to make sure that L5-S1 has fused and there is no hardware loosening or pseudoarthrosis. She also needs flexion-extension x-rays to make sure there is no instability at L3-4. I offered to get her into some physical therapy. She doesn't want to do this yet. We'll get the imaging studies. She will call us for the results. I told her if there is nothing critical on the results then I would probably have her undergo some therapy and may be even injection therapy and then see her back afterward. It's her some the critical on the imaging that I will call her have her come back and discuss the possibility of surgery upfront. She was happy with the plan. jessy Not available 01/20/2022 15:03:46 Plan of Treatment Reminders Order Date Submit Date Provider Last Modified By Organization Details Last Modified Time Details Appointments None recorded. Lab None recorded. Referral None recorded. Procedures None recorded. Surgeries posterior lumbar interbody fusion, single interspace (SURG) 2016 017 slippert Not available 7 11:05:09 Imaging XR, lumbosacral spine, 2 or 3 view 2016 017 [facility] Radiology [facility], [address] [place], [address], 7 10:43:42 Medication Orders None recorded. Patient TargetsNo targets recorded. Patient Instructions Encounter Date Encounter Id Patient Instructions Last Modified By Organization Details Last Modified Time 01/26/2017 [id number] cervical spinal stenosis: care instructions [email or web address] Not available 01/26/2017 15:12:28 04/04/2017 [id number] return to work [id number] Not availabl e 04/04/2017 12:41:30 Reason for Referral None Reported. Results Created Date Observation Date Name Description Value Unit Range Abnormal Flag Note LastModifiedBy Organization Detail LastModifiedTime 11/15/19 17 11/15/2016 MRI, lumba r spine , w/wo contr ast [facility] [address] [facility] [place] [facility] [place] [address] Patiedie t Name: KETAN zamora : 1954 Patiedie zamora 73 Orderi ng Provid er: VIANCA DAVALOS EXAM DATE: 2016 EXAM: MR LUMBAR SPINE W/WO CONTRA ST HISTOR Y: Back pain. Parasp inal lesion FINDIN GS: The exam consis ts of axial, and sagitt al imagin g follow ing standa rd MRI pulse sequen ce protoc ol. Post gadoli nium T1 imagin g was perfor med, 15 cc given COMPAR SUMEET: None MARROW /ALIGN MENT: Slight anteri or listhe sis of L5 on S1. This is likely due to L5 pars defect . Slippa ge is minima l and measur es roughl y 3 to 4 mm. There is no bone marrow edema on the fluid sensit horacio or STIR exam. There is no eviden ce of intrao sseous lesion or fractu re. T12 derek ioma. SPINAL CANAL: The conus medull gustavo and cauda equina are normal . PARASP INAL TISSUE S: Visibl e kidney s are unrema rkable . 2 cm fluid collec tion locate d betwee n the spinou s proces ses of L3 and L4. Very in usual findin g and I suspec t this relate s to inflam mation as there is some vague enhanc ement of this area. The etiolo gy is uncert ain and it may be useful to correl ate with a target ed CT of this area INTERV ERTEBR AL DISCS: T12-L1 : Centra l HNP. This appear s to be a pronou nced protru frank. No spinal canal or forami nal stenos is L1-L2: Diffus e annula r disc bulge. No spinal or forami nal stenos is L2-L3: Negati ve L3-L4: Negati ve L4-L5: Broad centra l protru frank of the disc. No signif icant spinal canal stenos is. There is mild stenos is of the right neural forame n at this level. L5-S1: Broad protru frank of the disc is presen t at this level. There is modera te degree of bilate ral neural forami nal stenos is. No spinal stenos is IMPRES FRANK: 1. Diffus e degene rative disc diseas e with slight slippa ge at L5-S1. Modera te bilate ral neural forami nal stenos is at L5-S1 2. Very unusua l collec tion betwee n the spinou s proces ses of L3 and L4. Etiolo gy is uncert ain althou gh favor this being inflam matory . Consid er correl ating with target ed CT Interp reted By: Rudy Elizabeth MD Electr onical ly Signed By: Rudy Elizabeth MD on 017 1:40 PM [email or web address] [facility] Radiology [facility] [address] [place], [address], 11/15/2016 15:56:23 11/15/19 17 11/15/2016 XR, lumbo sacra l spine , 2 or 3 view, bendi ng only [facility] [address] [facility] [place] [address] Roly zamora Name: KETAN zamora : 1954 Patiedie zamora 73 Orderi ng Provid er: VIANCA DAVALOS EXAM DATE: 2016 EXAM: XR LUMBAR SPINE FLEX/E XT ONLY CLINIC AL INFORM ATION: Back pain. IMAGES PROVID ED: Latera l views of the lumbar spine in flexio n and extens ion. COMPAR SUMEET: None. FINDIN GS: Verteb ral body height s are normal . L4-S1 disc space reduct ion is seen with anteri or and latera l osteop hytes. Grade 2 jayne listhe sis of L5 over S1 is noted. It measur es 13 mm in flexio n and 16 mm in extens ion. Degene rative change s are seen in the facet joints . Pars defect s cannot be ruled out. No radiog raphic eviden ce of injury is noted. IMPRES FRANK: Degene rative change s at L4-S1 level with signif icant, unstab le alignm ent abnorm ality at L5-S1. Interp reted By: Fitz Hills MD Electr onical ly Signed By: Fitz Hills MD on 017 2:37 PM [facility] Radiology [facility] [address] [place], [address], 12/12/2022 13:24:37 11/22/19 17 10/19/2016 MRI, lumba r spine , w/o contr ast No observ ation record ed. [facility] ([facility]) [address], [place], [address], 11/24/2016 16:08:06 11/24/19 17 10/19/2016 CT, lumba r spine , w/o contr ast No observ ation record ed. [facility] Not Available 2016 15:40:16 11/24/19 17 10/19/2016 CT, hip, w/o contr ast No observ ation record ed. [facility] Not Available 2016 15:40:16 01/27/20 17 01/26/2017 XR, lumbo sacra l spine , 2 or [address] [place] [address] Roly zamora Name: KETAN zamora : 1954 Roly zamora 73 Orderi ng Provid er: ADAN NICHOLAS EXAM DATE: 2016 EXAM: XR LUMBAR AP/LAT CLINIC AL INFORM ATION: Back pain. IMAGES PROVID ED: AP, latera l and coned down views of the lumbar spine. COMPAR SUMEET: 017 FINDIN GS: Status post L4-S1 loose hand packer ior fixati on and interb isabell fusion . There is no hardwa re compet ition. No hardwa re loosen ing or eviden ce of fractu re. Fairly mild diffus e degene rative disc diseas e change s noted elsewh ere. No radiog raphic eviden ce of injury is noted. IMPRES FRANK: Status post L4-S1 fusion with no compli cation Interp reted By: Rudy Elizabeth MD Electr onical ly Signed By: Rudy Elizabeth MD on 017 9:[address] Radiology [address], [address], 12/12/2022 13:24:46 04/04/20 17 04/04/2017 XR, lumbo sacra l spine , 2 or [address] [address] Patiedie zamora Name: KETAN zamora : 1954 Roly zamora 73 Orderi ng Provid er: ADAN NICHOLAS EXAM DATE: 2016 EXAM: XR LUMBAR AP/LAT CLINIC AL INFORM ATION: Postop erativ e. IMAGES PROVID ED: AP, latera l, and coned- down views of the lumbar spine. COMPAR SUMEET: None. FINDIN GS AND IMPRES FRANK: Spinal fusion is noted at L4-S1 level with pedicu lar screws and connec ting rods. Surgic al hardwa re is satisf actori ly placed . No eviden ce of loosen ing or infect ion is seen. Degene rative change s are seen at other levels . Interp reted By: Fitz Hills MD Electr onical ly Signed By: Fitz Hills MD on 017 10:38 AM [email or web address] [facility] Radiology [facility] [address] [place] [address], [phone], 04/04/2017 12:37:08 01/29/20 22 01/28/2022 CT, lumba r spine , w/o contr ast [place] [address] [facility] [place] [address] Roly zamora Name: KETAN zamora : 1954 Roly t 73 Orderi ng Provid er: ADAN NICHOLAS EXAM DATE: 2021 EXAM: CT LUMBAR WITHOU T CONTRA ST HISTOR Y: Back pain. Previo us surger y COMPAR SUMEET: None. TECHNI QUE: 1 mm direct axial slices were obtain ed throug h the lumbar spine. Comput er-gen erated axial, sagitt al, and cortes l recons tructi ons are also provid ed for interp retati on. FINDIN GS: The patien t has had previo us L4-S1 loose hand packer ior fixati on and interb isabell fusion . There is no defini te hardwa re compli cation noted. No loosen ing is indica ricarda. There is 5 mm anteri or listhe sis of L4 relati ve to both L3 and L5. Fairly mild diffus e degene rative endpla te spurri ng is presen t. No acute fractu re is visibl e. Tiny Schmor l's node involv ing the inferi or endpla te of L3 and superi or endpla te of L2 T12-L1 : Endpla te spurri ng is presen t with a diffus e bulge. No spinal or forami nal stenos is L1-L2: There is minima l disc bulge. . There is [no centra l canal stenos is. There is no neural forami nal stenos is. L2-L3: There is mild disc bulge. There is no centra l canal stenos is. There is no neural forami nal stenos is. L3-L4: Narrow ing of the disc spaces presen t. There is a broad protru frank of the disc. Modera te bilate ral neural forami nal stenos is is indica ricarda, left greate r than right. No substa ntial spinal canal stenos is L4-L5: Fusion level. Mild residu al spurri ng. No substa ntial spinal canal or forami nal stenos is is indica ricarda L5-S1: Fusion level. Residu al spurri ng is presen t. Mild bilate ral neural forami nal narrow ing. IMPRES FRANK: 1. Uncomp licate d appear ing L4-S1 fusion with no hardwa re loosen ing 2. Malali gnment , mild, L3-L5 3. Diffus e degene rative change s are presen t throug hout the L-spin e. Most conspi cuous at the L3-4 level as descri bed Interp reted By: Rudy Elizabeth MD Electr onical ly Signed By: Rudy Elizabeth MD on 022 2:[address] Radiology [facility] [address] [place] [address], [place], [address], 03/02/2022 15:37:07 01/29/20 22 01/28/2022 MRI, cervi shelbie spine , w/o contr ast [address] [place] [address] Roly zamora Name: KETAN Doran TONY zamora : 1954 Roly noah 73 Orderi ng Provid er: ADAN NICHOLAS EXAM DATE: 2021 EXAM: MR CERVIC AL W/O CONTRA ST HISTOR Y: Neck pain COMPAR SUMEET: None. FINDIN GS: The cervic al spine is normal in alignm ent. There is no sublux ation. There is no fractu re or pathol ogic intrao sseous lesion . There is mild anteri or margin al osteop hytic spurri ng. No parasp inous soft tissue abnorm ality is identi fied. The visual ized spinal cord and loose hand packer ior fossa of the brain are normal in appear ance. The cranio cervic al juncti on is normal in appear ance. There are mild degene rative change s at C1-C2. C2-C3: There is mild endpla te spurri ng and a mild disc bulge. There is no centra l canal stenos is. There is no neural forami nal stenos is. C3-C4: Broad protru frank parace ntral to the left. Slight narrow ing left neural forame n. No substa ntial spinal stenos is C4-C5: Broad protru frank with associ ated endpla te spurri ng. This disc/o steoph yte comple x displa cing mild bilate ral neural forami nal stenos is and mild centra l canal stenos is. C5-C6: Broad protru frank of the disc with endpla te spurri ng. There is modera te narrow ing left neural forame n and mild narrow ing right neural forame n. Mild spinal stenos is. C6-C7: Broad protru frank of the disc with endpla te spurri ng. Mild centra l canal stenos is. Mild bilate ral neural forami nal narrow ing C7-T1: This interv ertebr al disc is essent ially normal in appear ance. The visual ized thorac ic spine are essent ially normal in appear ance. IMPRES FRANK: 1. Diffus e degene rative disc diseas e is presen t. These levels descri bed furthe r above. Interp reted By: Rudy Elizabeth MD Electr onical ly Signed By: Rudy Elizabeth MD on 022 2:[address] Rad[address], [phone], 03/02/2022 15:36:45 01/29/20 22 01/28/2022 MRI, lumba r spine , w/wo contr ast [address] [address] Roly zamora Name: KETAN JIMENEZ Mariahedie noah : 1954 Roly t 73 Orderi ng Provid er: ADAN NICHOLAS EXAM DATE: 2021 EXAM: MR LUMBAR SPINE W/WO CONTRA ST HISTOR Y: Back pain. Previo us surger y COMPAR SUMEET: 017 The patien t did not requir e sedati on for this exam. A baseli ne serum creati nine with eGFR was obtain ed prior to inject ion of contra st medium due to the patien ts risk factor s for MARION. Calcul ated eGFR at time of exam was POC>60 FINDIN GS: The patien t has had previo us L4-S1 loose hand packer ior fixati on and interb isabell fusion . No hardwa re loosen ing is suspec ricarda. No edema on the fluid sensit horacio or STIR exam is presen t. T12-L1 : Broad mild protru frank of the disc. No spinal or forami nal stenos is L1-L2: There is a minima l disc bulge. . There is no centra l canal stenos is. There is no neural forami nal stenos is. L2-L3: There is a mild disc bulge. There is no centra l canal stenos is. There is no neural forami nal stenos is. L3-L4: There is an HNP presen t which extend s just parace ntral to the right of midlin e. Likely extrud ed disc. Right latera l recess stenos is is create d. There is modera te bilate ral neural forami nal stenos is. L4-L5: Fusion level. No signif icant spinal or forami nal stenos is L5-S1: Fusion level. Minima l bilate ral neural forami nal narrow ing. After intrav enous admini strati on of [address] ([facility] [id number] 2), there is no abnorm al enhanc ement in the lumbar spine. IMPRES FRANK: 1. Uncomp licate d appear ing L4-S1 fusion 2. HNP parace ntral to the right at L3-4 Interp reted By: Rudy Elizabeth MD Electr onical ly Signed By: Rudy Elizabeth MD on 022 3:02 PM [email or web address] [facility] Radiology [facility] [address] [place], [address], 03/02/2022 15:37:06 01/29/20 22 01/28/2022 XR, lumbo sacra l spine , 2 or 3 view, bendi ng only [address] [address] Roly zamora Name: KETAN zamora : 1954 Roly zamora 73 Orderi ng Provid er: ADAN NICHOLAS EXAM DATE: 2021 EXAM: XR LUMBAR SPINE FLEX/E XT ONLY CLINIC AL INFORM ATION: Back pain. IMAGES PROVID ED: Latera l views of the lumbar spine in flexio n and extens ion. COMPAR SUMEET: None. FINDIN GS AND IMPRES FRANK: Spinal fusion is noted at L4-S1 level with surgic al hardwa re in place. No abnorm al moveme nt of the hardwa re is seen in flexio n or extens ion. Degene rative change s are seen at other levels . There is grade 1 retrol isthes is of L3 over L4. It measur es 7.5 mm in flexio n and 5.5 mm in extens ion showin g mild instab ility. Interp reted By: Fitz Hills MD Electr onical ly Signed By: Fitz Hills MD on 022 3:[address] Radiology [address], [address], 03/02/2022 15:37:06 Result Notes Documentation Provider Name and Address Organization Details Recorded Time Xr, Lumbosacral Spine, 2 Or 3 View : [address] [address] Patient Name: MARYLOU JIMENEZ Patient : 1955 Patient Ordering Provider: ADAN NICHOLAS EXAM DATE: 01/26/2017 EXAM: XR LUMBAR AP/LAT CLINICAL INFORMATION: Back pain. IMAGES PROVIDED: AP, lateral and coned down views of the lumbar spine. COMPARISON: 11/15/2016 FINDINGS: Status post L4-S1 posterior fixation and interbody fusion. There is no hardware competition. No hardware loosening or evidence of fracture. Fairly mild diffuse degenerative disc disease changes noted elsewhere. No radiographic evidence of injury is noted. IMPRESSION: Status post L4-S1 fusion with no complication Interpreted By: Rudy Elizabeth MD Miri Fish [facility] 12/12/2022 13:24:46 Xr, Lumbosacral Spine, 2 Or 3 View : [address] [address] Patient Name: MARYLOU JIMENEZ Patient : 1955 Patient Ordering Provider: ADAN NICHOLAS EXAM DATE: 04/04/2017 EXAM: XR LUMBAR AP/LAT CLINICAL INFORMATION: Postoperative. IMAGES PROVIDED: AP, lateral, and coned-down views of the lumbar spine. COMPARISON: None. FINDINGS AND IMPRESSION: Spinal fusion is noted at L4-S1 level with pedicular screws and connecting rods. Surgical hardware is satisfactorily placed. No evidence of loosening or infection is seen. Degenerative changes are seen at other levels. Interpreted By: Chan Hills MD NICHOLAS MD [address] [place] [address], [phone] [place] [address] 04/04/2017 12:37:08 Ct, Lumbar Spine, W/o Contrast : [place] [address] Patient Name: MARYLOU JIMENEZ Patient : 1955 Patient Ordering Provider: ADAN NICHOLAS EXAM DATE: 01/28/2022 EXAM: CT LUMBAR WITHOUT CONTRAST HISTORY: Back pain. Previous surgery COMPARISON: None. TECHNIQUE: 1 mm direct axial slices were obtained through the lumbar spine. Computer-generated axial, sagittal, and coronal reconstructions are also provided for interpretation. FINDINGS: The patient has had previous L4-S1 posterior fixation and interbody fusion. There is no definite hardware complication noted. No loosening is indicated. There is 5 mm anterior listhesis of L4 relative to both L3 and L5. Fairly mild diffuse degenerative endplate spurring is present. No acute fracture is visible. Tiny Schmorl's node involving the inferior endplate of L3 and superior endplate of L2 T12-L1: Endplate spurring is present with a diffuse bulge. No spinal or foraminal stenosis L1-L2: There is minimal disc bulge.. There is [no central canal stenosis. There is no neural foraminal stenosis. L2-L3: There is mild disc bulge. There is no central canal stenosis. There is no neural foraminal stenosis. L3-L4: Narrowing of the disc spaces present. There is a broad protrusion of the disc. Moderate bilateral neural foraminal stenosis is indicated, left greater than right. No substantial spinal canal stenosis L4-L5: Fusion level. Mild residual spurring. No substantial spinal canal or foraminal stenosis is indicated L5-S1: Fusion level. Residual spurring is present. Mild bilateral neural foraminal narrowing. IMPRESSION: 1. Uncomplicated appearing L4-S1 fusion with no hardware loosening 2. Malalignment, mild, L3-L5 3. Diffuse degenerative changes are present throughout the L-spine. Most conspicuous at the L3-4 level as described Interpreted By: Rudy Elizabeth MD NICHOLAS MD [address] [place] [address], [phone] [place] [address] 03/02/2022 15:37:07 Mri, Cervical Spine, W/o Contrast : [address] [address] Patient Name: MARYLOU JIMENEZ Patient : 1955 Patient Ordering Provider: DAAN NICHOLAS EXAM DATE: 01/28/2022 EXAM: MR CERVICAL W/O CONTRAST HISTORY: Neck pain COMPARISON: None. FINDINGS: The cervical spine is normal in alignment. There is no subluxation. There is no fracture or pathologic intraosseous lesion. There is mild anterior marginal osteophytic spurring. No paraspinous soft tissue abnormality is identified. The visualized spinal cord and posterior fossa of the brain are normal in appearance. The craniocervical junction is normal in appearance. There are mild degenerative changes at C1-C2. C2-C3: There is mild endplate spurring and a mild disc bulge. There is no central canal stenosis. There is no neural foraminal stenosis. C3-C4: Broad protrusion paracentral to the left. Slight narrowing left neural foramen. No substantial spinal stenosis C4-C5: Broad protrusion with associated endplate spurring. This disc/osteophyte complex displacing mild bilateral neural foraminal stenosis and mild central canal stenosis. C5-C6: Broad protrusion of the disc with endplate spurring. There is moderate narrowing left neural foramen and mild narrowing right neural foramen. Mild spinal stenosis. C6-C7: Broad protrusion of the disc with endplate spurring. Mild central canal stenosis. Mild bilateral neural foraminal narrowing C7-T1: This intervertebral disc is essentially normal in appearance. The visualized thoracic spine are essentially normal in appearance. IMPRESSION: 1. Diffuse degenerative disc disease is present. These levels described further above. Interpreted By: Rudy Elizabeth MD NICHOLAS MD [address] [place] [address], [phone] 03/02/2022 15:36:45 Mri, Lumbar Spine, W/wo Contrast : [address] [address] Patient Name: MARYLOU JIMENEZ Patient : 1955 Patient Ordering Provider: ADAN NICHOLAS EXAM DATE: 01/28/2022 EXAM: MR LUMBAR SPINE W/WO CONTRAST HISTORY: Back pain. Previous surgery COMPARISON: 11/15/2016 The patient did not require sedation for this exam. A baseline serum creatinine with eGFR was obtained prior to injection of contrast medium due to the patients risk factors for MARION. Calculated eGFR at time of exam was POC>60 FINDINGS: The patient has had previous L4-S1 posterior fixation and interbody fusion. No hardware loosening is suspected. No edema on the fluid sensitive or STIR exam is present. T12-L1: Broad mild protrusion of the disc. No spinal or foraminal stenosis L1-L2: There is a minimal disc bulge.. There is no central canal stenosis. There is no neural foraminal stenosis. L2-L3: There is a mild disc bulge. There is no central canal stenosis. There is no neural foraminal stenosis. L3-L4: There is an HNP present which extends just paracentral to the right of midline. Likely extruded disc. Right lateral recess stenosis is created. There is moderate bilateral neural foraminal stenosis. L4-L5: Fusion level. No significant spinal or foraminal stenosis L5-S1: Fusion level. Minimal bilateral neural foraminal narrowing. After intravenous administration of 10 mL Gadavist ([facility] [id number]), there is no abnormal enhancement in the lumbar spine. IMPRESSION: 1. Uncomplicated appearing L4-S1 fusion 2. HNP paracentral to the right at L3-4 Interpreted By: Rudy Elizabeth MD NICHOLAS MD [address] [place] [address], [phone], [facility] 03/02/2022 15:37:06 Xr, Lumbosacral Spine, 2 Or 3 View, Bending Only : [address] [address] Patient Name: MARYLOU JIMENEZ Patient : [id number] Patient Ordering Provider: ADAN NICHOLAS EXAM DATE: 01/28/2022 EXAM: XR LUMBAR SPINE FLEX/EXT ONLY CLINICAL INFORMATION: Back pain. IMAGES PROVIDED: Lateral views of the lumbar spine in flexion and extension. COMPARISON: None. FINDINGS AND IMPRESSION: Spinal fusion is noted at L4-S1 level with surgical hardware in place. No abnormal movement of the hardware is seen in flexion or extension. Degenerative changes are seen at other levels. There is grade 1 retrolisthesis of L3 over L4. It measures 7.5 mm in flexion and 5.5 mm in extension showing mild instability. Interpreted By: Chan Hills MD NICHOLAS MD [address] [place] [address], [phone], [facility] 03/02/2022 15:37:06 Problems No Known Problems Procedures Surgical History Date Name Laterality Status Provider Name and Address Organization Details Recorded Time 11/06/19 Hysteroscopy remove fb completed Alondra Medellin [facility] 11/15/2016 09:17:33 Imaging Results None recorded. Procedure Notes None recorded. Medical Equipment None Reported. Allergies No known drug allergies Medications Name Sig Start Date Stop Date Status Note LastModified by Organization Details LastModified Time metformin 500 mg tablet TAKE 1 TABLET BY MOUTH EVERY DAY IN THE MORNING active Not Available Not Available No t Available Percocet 7.5 mg-325 mg tablet Take 1 tablet 4 times a day by oral route as needed. 2016 active Not Available Not Available Not Avai lable hydrochloroth iazide 50 mg tablet TAKE 1 TABLET BY MOUTH EVERY DAY active Not Available Not Available No t Available Medrol (Donnell) 4 mg tablets in a dose pack Take 1 dose pk by oral route as directed. 2021 active Not Available Not Available Not Avai lable sertraline 100 mg tablet TAKE 1 TABLET BY MOUTH EVERY DAY active Not Available Not Available No t Available prednisolone acetate 1 % eye drops,suspens ion SHAKE LIQUID AND INSTILL 1 DROP IN BOTH EYES THREE TIMES DAILY active Not Available Not Available No t Available triamcinolone acetonide 0.025 % topical cream APPLY TOPICALLY THREE TIMES DAILY FOR 7 DAYS NEEDED FOR ITCHING active Not Available Not Available No t Available oxycodone-aakash taminophen 10 mg-325 mg tablet TAKE 1 TABLET BY MOUTH EVERY 4 TO 6 HOURS NEEDED FOR PAIN active Not Available Not Available No t Available Valium 5 mg tablet Take 1 tablet twice a day by oral route as needed. 2016 active Not Available Not Available Not Avai lable cephalexin 500 mg capsule TAKE 1 CAPSULE BY MOUTH EVERY 6 HOURS FOR 10 DAYS active Not Available Not Available No t Available hydroxyzine HCl 25 mg tablet TAKE 1 TABLET BY MOUTH EVERY NIGHT AT BEDTIME active Not Available Not Available No t Available ramipril 10 mg capsule TAKE 1 CAPSULE BY MOUTH TWICE DAILY active Not Available Not Available No t Available cyclobenzapri ne 5 mg tablet TAKE ONE TABLET BY MOUTH THREE TIMES DAILY active Not Available Not Available No t Available rosuvastatin 5 mg tablet TAKE 1 TABLET BY MOUTH EVERY DAY active Not Available Not Available No t Available Vitals Date Recorded Body height Body weight Body mass index (BMI) Systolic blood pressure Diastolic blood pressure Provider Name and Address Organization Details Last Updated DateTime 11/24/2016 160.02 cm 79850.55 g 33.7 kg/m2 118 mm[Hg] 70 mm[Hg] Kelsi Aileen [facility] 7 08:43:56 Date Recorded Body height Body mass index (BMI) Body weight Heart rate Systolic blood pressure Diastolic blood pressure Provider Name and Address Organization Details Last Updated DateTime 2 160.02 cm 33.3 kg/m2 96406.3 7 g 76 /min 128 mm[Hg] 75 mm[Hg] Rosalinda Ruelas [facility] 2 14:46:46 Date Recorded Body height Body weight Body mass index (BMI) Systolic blood pressure Diastolic blood pressure Provider Name and Address Organization Details Last Updated DateTime 01/26/2017 160.02 cm 03004.55 g 33.7 kg/m2 116 mm[Hg] 68 mm[Hg] Kelsi Gallagher [facility] 7 10:43:58 Date Recorded Body height Body weight Body mass index (BMI) Systolic blood pressure Diastolic blood pressure Provider Name and Address Organization Details Last Updated DateTime 04/04/2017 160.02 cm 56772.55 g 33.7 kg/m2 122 mm[Hg] 70 mm[Hg] Kelsi [facility] 7 10:30:50 Social History Question Answer Notes LastModified by Organizat ion Details LastModified Time Tobacco Smoking Status [facility]2016 09:16:02 How Much Tobacco Do You Smoke? No [email or web address] Information not available 11/15/2016 Sex: Unknown Functional Status None recorded. Mental Status None recorded. Family History Relationship Description Onset Age of this Age Resolved Age Notes LastModified by Organization Details LastModified Time Unspecified Relation Family history of malignant neoplasm [email or web address] Not available 2016 09:15:07 Unspecified Relation Back problem [email or web address] Not available 11/06 09:15:19 Unspecified Relation Heart disease [email or web address] Not available 2016 09:15:53 Medical History Condition Response Hypertension Y High Cholesterol Y Gynecological HistoryNo gynecological history recorded. Obstetrics History GPAL:G 0 P 0 0 0 0 Past Encounters Encounter ID Performer Location Encounter Start Date Encounter Closed Date Diagnosis/Indication Diagnosis SNOMED-CT Code Diagnosis ICD10 Code Diagnosis Note [id number] VIANCA WRIGHT PA-C [facility] [address] [place] [address] 11/15/2016 09:00:39 11/15/2016 11:32:57 Lumbar spondylosis 823885022 M47.896 Lumbar radiculopathy 128 071642 M54.16 [id number] ADAN NICHOLAS MD [facility] [address] [place] [address] 11/24/2016 08:29:08 11/24/2016 09:18:31 Spondylolisthesis, grade 2 87064532 M43.10 [id number] ADAN NICHOLAS MD [facility] [address] [place] [address] 01/09/2017 10:20:45 01/09/2017 10:32:12 [id number] ADAN NICHOLAS MD [facility] [address] [place] [address] 01/26/2017 10:06:10 01/26/2017 11:16:31 Spondylolisthesis, grade 1 93201359 M43.10 Spinal kim nosis of lumbar region 21817743 M48.06 [id number] ADAN NICHOLAS MD [facility] [address] [place] [address] 04/04/2017 10:16:15 04/04/2017 11:00:40 Lumbar spondylosis [id number] M47.858 [id number] ADAN NICHOLAS MD [facility] [address] [place] [address] 01/20/2022 13:54:41 01/21/2022 09:05:23 Lumbar spondylosis 494954115 M47.896 Health Concerns Section Related Observation LastModified by Organization Detai ls LastModified Time None Recorded Concern Status LastModified by Organization Details LastModified Time None Recorded Advance Directives Directive None Recorded Payers Insurance Date Sequence Insurance Name Policy Number Policy Wheeler Covered Member ID Wheeler Member ID Guarantor Name 11/25/2021 1 [place] [id number] Michael Jimenez [id number] Marylou Jimenez 01/17/2022 1 [place] Maryluo Jimenez [id number] Marylou Jimenez 01/31/2022 2 [employer] (MEDICARE SUPPLEMENT) Marylou Jimenez [id number] Marylou Jimenez Notes Date Note Type Note Provider Name and Address Organization Details Recorded Time 11/24/2016 text/html Dear Dr. Radha zamora, I saw Mrs. Jimenez in the office today. She was seen by our PA Vianca Wright PA-C on November 15, [address] scan. She's had 8 or 9 months of radicular leg pain the low back pain. She has mechanical back and leg pain. She gets relief when she lies down. This has not been the case so much recently as her pain is significantly worsened. She describes severe left L5 radiculopathy with pain radiating down to the op the left foot. She feels like her left ankle is weak. She's done physical therapy without any relief.She states that she underwent a DEXA scan a few months ago.He states that she does not have osteoporosis. ADAN NICHOLAS MD [facility] [place], [address], [facility] 11/24/2016 09:09:56 01/26/2017 text/html I saw Ms. Tony sampson n the office. I performed an L4-5 L5-S1 posterior lumbar interbody fusion on December 28, 2016. She is mostly symptomatic from the L5-S1 level where she had severe foraminal stenosis. However, she has significant degenerative changes and some instability at the L4-5 level so I talked to her about extending the fusion up to the L4-5 level. She doing great at this point. Her only complaint is she has little bit of lateral hip pain in the region of the trochanteric bursa. Her back pain is much better. She's not having any radicular leg pain. ADAN NICHOLAS MD [address] [place], [address], [facility] 01/26/2017 11:12:00 04/04/2017 text/html I saw Mrs. Jimenez in the office. I performed an L4-S1 fusion on December 28, 2016.I saw her a month after surgery and she is doing great. She continues to do well. Severe back and leg pain have resolved. She's very happy. She has some soreness in her back toward the end of the day. 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 She wants to go back to work next week. ADAN NICHOLAS MD [address] [place], [address], [facility] 04/04/2017 10:57:56 01/20/2022 text/html 66-year-old nate Sampson performed an L4-S1 posterior lumbar interbody fusion December 28, 2016. I last saw her in March 2017. She was doing great. 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 She's doing just fine until about 5 months ago when she developed some right-sided low back pain that radiates down the anterolateral thigh into the anterior shins stopping before the foot. She also has some left-sided posterior iliac pain. She has mechanical features meaning that when she stands and is active she has worsening symptoms. She gets relief when she lies down or sits down. She also reports some posterior neck pain radiating to the top of the right shoulder with numbness in the right hand dorsum mostly. She denies any clumsiness or weakness of the upper extremities or gait instability. She's had no conservative treatment. ADAN NICHOLAS MD [address] [place] [address], [phone], [facility] 01/20/2022 15:04:11 OBGyn Episode No OBEpisode recorded.
== END 2025-04-19 23:59 | disposition home or self-care (01) ==
LOC: LAB.DROPOF 04-21 11:29
PROVIDERS: PCP Family Medicine; Visit Provider Nurse Practitioner Family
DX: N39.0 Urinary tract infection, site not specified (principal)
CPT/HCPCS: 87086; 87088; 87186

== ENCOUNTER 2025-10-06 12:44 | Outpatient (CLI) | payer MEDICARE, SELFPAY ==
--- NOTE | 2025-10-06 12:48 | MM_ITS ---
PROCEDURE INFORMATION: Exam: Bilateral Screening 3D Mammography Exam date and time: 10/06/2025 1:03 PM Age: 70 years old Clinical indication: Screening examination TECHNIQUE: Imaging protocol: Bilateral Screening tomosynthesis and 2D mammography including computer-aided detection (CAD) when performed. COMPARISON: 1. MG DMSB DIGITAL MAMM-SCREEN BILATERAL 08/20/2010 10:00 AM 2. MG DIGMAMMS MAMMOGRAM SCREEN-PRACTICE SPECIALIST N/C 02/12/2009 11:18 AM FINDINGS: MAMMOGRAPHY: Breast composition: There are scattered areas of fibroglandular density. Mass: None. Architectural distortion: None. Calcifications: No suspicious calcifications. Asymmetric density: None. Skin thickening: None. Axillary adenopathy: None. IMPRESSION: No mammographic evidence of malignancy. Annual screening is recommended unless otherwise clinically indicated. ASSESSMENT: BI-RADS Category 1: Negative.
--- NOTE | 2025-10-06 12:49 | XR_ITS ---
FINAL REPORT TECHNIQUE: Bone densitometry calculations of the lumbar spine and left hip were obtained. CLINICAL HISTORY: SCREENING COMPARISON: 09/01/2023 FINDINGS: The lumbar spine was not evaluated. Using the right forearm, the bone mineral density of 1/3 is 0.578 g/cm2, corresponding to T-score of -1.9 and a Z score of 0.1. This is within the range of osteopenia. Using the right hip, the bone mineral density of the femoral neck is 0.796 g/cm2, corresponding to a T-score of -0.5 and a Z-score of 1.3. This is within the range of normal limits. Previously this was 0.809 with a T-score of -0.4. NOTE: T-score: Standard deviation compared with peak bone mass of young adult mean. *Following the recommendations of the International Society of Bone densitometry, classification of hip BMD is based on the lower of two T-scores; total hip or femoral neck. IMPRESSION: 1. Bone mineral density of the right forearm within the range of osteopenia. 2. Bone mineral density of the right femoral neck within the range of normal limits. Lumbar spine was not evaluated. Reviewed, Interpreted and Dictated by Joanie Garcia MD Transcribed by Rosalinda Cintron Authenticated and [facility]
--- OUTSIDE RECORDS SUMMARY | 2025-10-06 12:49 | XMS_ITS | Data Portability ---
Author Organization [facility] Address [address] [place] [address] Assessment Encounter Date Assessment Date Assessment LastModified [...] after surgery. 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 She's can stay out of work [...] upfront. She was happy with the plan. [email or web address] Not available 01/20/2022 15:03:46 Plan of Treatment Reminders Order Date Submit Date Provider Last Modified By Organization Details Last Modified Time Details Appointments None recorded. Lab None recorded. Referral None recorded. Procedures None recorded. Surgeries posterior lumbar interbody fusion, single interspace (SURG) 2016 017 [email or web address] Not available 7 11:05:09 Imaging XR, lumbosacral spine, 2 or 3 view 2016 017 [facility] Radiology [facility], [address] [place], [address], 7 10:43:42 Medication Orders None recorded. Patient TargetsNo targets recorded. Patient Instructions Encounter Date Encounter Id Patient Instructions Last Modified By Organization Details Last Modified Time 01/26/2017 [id number] cervical spinal stenosis: care instructions [email or web address] Not available 01/26/2017 15:12:28 04/04/2017 [id number] return to work [email or web address] Not availabl e 04/04/2017 12:41:30 Reason for Referral None Reported. Results Created Date Observation Date Name Description Value Unit Range Abnormal Flag Note LastModifiedBy Organization Detail LastModifiedTime 11/15/19 17 11/15/2016 MRI, lumba r spine , w/wo contr ast [facility] [address] [facility] [place] [address] Roly zamora Name: KETAN zamora : 1954 Roly zamora 73 Orderi ng Provid er: VIANCA [...] Elizabeth MD on 017 1:40 PM [email or web address] [facility] Radiology [address], [address], 11/15/2016 15:56:23 11/15/19 17 11/15/2016 XR, lumbo sacra l spine , 2 or 3 view, bendi ng only [facility] [address] [place] [address] Roly zamora Name: KETAN zamora : 1954 Roly zamora 73 Orderi ng Provid er: VIANCA [...] Fitz Hills MD on 017 2:[address] Radiology [facility] [address] [place], [address], 12/12/2022 13:24:37 11/22/19 17 10/19/2016 MRI, lumba r spine , w/o contr ast No observ ation record ed. [facility] ([facility] [address], [place], [address], 11/24/2016 16:08:06 11/24/19 17 10/19/2016 CT, lumba r spine , w/o contr ast No observ ation record ed. [facility] Not Available 2016 15:40:16 11/24/19 17 10/19/2016 CT, hip, w/o contr ast No observ ation record ed. [facility] Not Available 2016 15:40:16 01/27/20 17 01/26/2017 XR, lumbo sacra l spine , 2 or [address] [address] Roly zamora Name: KETAN zamora : 1954 Roly zamora 73 Orderi ng Provid er: ADAN NICHOLAS EXAM DATE: 2016 EXAM: XR LUMBAR AP/LAT CLINIC AL INFORM ATION: Back pain. IMAGES PROVID ED: AP, latera l and coned down views of the lumbar spine. COMPAR SUMEET: 017 FINDIN GS: Status post L4-S1 gill box tender ior fixati on and interb isabell fusion [...] Rudy Elizabeth MD on 017 9:[email or web address] Radiology [address], [address], 12/12/2022 13:24:46 04/04/20 17 04/04/2017 XR, lumbo sacra l spine , 2 or [address] [address] Patiedie t Name: KETAN zamora : 1954 Roly t [...] Hills MD on 017 10:38 AM [email or web address] [facility] Radiology [facility] [address] [place] [address], [address], 04/04/2017 12:37:08 01/29/20 22 01/28/2022 CT, lumba r spine , w/o contr ast [address] [address] Roly zamora Name: KETAN zamora : 1954 [...] patien t has had previo us L4-S1 gill box tender ior fixati on and interb isabell fusion [...] Rudy Elizabeth MD on 022 2:[address] Radiology [facility] [address] [place] [address], [place], [address], 03/02/2022 15:37:07 01/29/20 22 01/28/2022 MRI, cervi shelbie spine , w/o contr ast [address] [place] [address] Roly t Name: KETAN Doran DAMARIS Lemusedie zamora : 1954 Patiedie t 73 Orderi ng Provid er: ADAN NICHOLAS EXAM DATE: 2021 EXAM: MR CERVIC AL W/O CONTRA ST HISTOR Y: Neck pain COMPAR SUMEET: None. FINDIN GS: The cervic al spine is normal in align ent. There is no sublux ation. There is no fractu re or pathol ogic intrao sseous lesion . There is mild anteri or margin al osteop hytic spurri ng. No parasp inous soft tissue abnorm ality is identi fied. The visual ized spinal cord and gill box tender ior fossa of the brain are normal [...] spine are essent ially normal in appear [facility]. IMPRES FRANK: 1. Diffus e degene rative disc diseas e is presen t. These levels descri bed furthe r above. Interp reted By: Rudy Elizabeth MD Electr onical ly Signed By: Rudy Elizabeth MD on 022 2:[email or web address] Radiology [facility] [address] [place] [address], [phone], 03/02/2022 15:36:45 01/29/20 22 01/28/2022 MRI, lumba r spine , w/wo contr ast [place] [address] [place] [address] Roly zamora Name: KETAN JIMENEZ Roly zamora : 1954 Roly zamora 73 Orderi ng Provid er: ADAN D CRISTOPHER EXAM DATE: 2021 EXAM: MR LUMBAR SPINE [...] patien t has had previo us L4-S1 gill box tender ior fixati on and interb isabell fusion [...] strati on of [address] ([facility] [address]-0 2), there is no abnorm al enhanc ement in the lumbar spine. IMPRES FRANK: 1. Uncomp licate d appear ing L4-S1 fusion 2. HNP parace ntral to the right at L3-4 Interp reted By: Rudy Elizabeth MD Electr onical ly Signed By: Rudy Elizabeth MD on 022 3:[address] Radiology [facility] [address] [place], [address], 03/02/2022 15:37:06 01/29/20 22 01/28/2022 XR, lumbo sacra l spine , 2 or 3 view, bendi ng only [address] [address] Patiedie zamora Name: KETAN zamora : 1954 Patiedie t 73 Orderi ng Provid er: ADAN [...] Fitz Hills MD on 022 3:[address] Radiology [address], [address], 03/02/2022 15:37:06 Result Notes Documentation Provider Name and Address Organization Details Recorded Time Xr, Lumbosacral Spine, 2 Or 3 View : [address] [address] Patient Name: MARYLOU JIMENEZ Patient : 1955 [...] Interpreted By: Rudy Elizabeth MD Miri Fish [facility] 12/12/2022 13:24:46 Xr, Lumbosacral Spine, 2 Or 3 View : [address] [address] Patient Name: MARYLOU JIMENEZ Patient : 1955 Patient Ordering Provider: AADN NICHOLAS EXAM DATE: 04/04/2017 EXAM: XR LUMBAR [...] Interpreted By: Chan Hills MD NICHOLAS MD [address] [place] [address], [phone] 04/04/2017 12:37:08 Ct, Lumbar Spine, W/o Contrast : [address] [address] Patient Name: MARYLOU JIMENEZ Patient : 1955 [...] Interpreted By: Rudy Elizabeth MD NICHOLAS MD [address] [place] [phone] [place] [address] 03/02/2022 15:37:07 Mri, Cervical Spine, W/o Contrast : [address] [address] Patient Name: MARYLOU JIMENEZ Patient : 1955 Patient Ordering Provider: ADAN NICHOLAS EXAM DATE: 01/28/2022 EXAM: MR CERVICAL [...] Interpreted By: Rudy Elizabeth MD NICHOLAS MD [address] [place] [address], [phone] 03/02/2022 15:36:45 Mri, Lumbar Spine, W/wo Contrast : [address] [address] Patient Name: MARYLOU JIMENEZ Patient : 1955 [...] After intravenous administration of 10 mL Gadavist ([facility] [address]28), there is no abnormal enhancement in the lumbar spine. IMPRESSION: 1. Uncomplicated appearing L4-S1 fusion 2. HNP paracentral to the right at L3-4 Interpreted By: Rudy Elizabeth MD NICHOLAS MD [address] [place] [address], [address], [facility] 03/02/2022 15:37:06 Xr, Lumbosacral Spine, 2 Or 3 View, Bending Only : [address] [address] Patient Name: MARYLOU JIMENEZ Patient : 1955 [...] Interpreted By: Chan Hills MD NICHOLAS MD [address] [place] [address], [address], [facility] 03/02/2022 15:37:06 Problems No Known Problems Procedures Surgical History Date Name Laterality Status Provider Name and Address Organization Details Recorded Time 11/06/19 Hysteroscopy remove fb completed Alondra Medellin [facility] 11/15/2016 09:17:33 Imaging Results None recorded. Procedure [...] Body weight Body mass index (BMI) Systolic And Diastolic Provider Name and Address Organization Details Last Updated DateTime 11/24/2016 160.02 cm 14400.55 g 33.7 kg/m2 118/70 mm[Hg] Kelsi Gallagher [facility] 11/24/2016 08:43:56 Date Recorded Body height Body mass index (BMI) Body weight Heart rate Systolic And Diastolic Provider Name and Address Organization Details Last Updated DateTime 01/20/2022 160.02 cm 33.3 kg/m2 13366.37 g 76 /min 128/75 mm[Hg] Rosalinda Ruelas [facility] 01/20/2022 14:46:46 Date Recorded Body height Body weight Body mass index (BMI) Systolic And Diastolic Provider Name and Address Organization Details Last Updated DateTime 01/26/2017 160.02 cm 30140.55 g 33.7 kg/m2 116/68 mm[Hg] Kelsi Gallagher [facility] 01/26/2017 10:43:58 Date Recorded Body height Body weight Body mass index (BMI) Systolic And Diastolic Provider Name and Address Organization Details Last Updated DateTime 04/04/2017 160.02 cm 20374.55 g 33.7 kg/m2 122/70 mm[Hg] Kelsi Pror [facility] 04/04/2017 10:30:50 Social History Question Answer Notes LastModified by Organizat ion Details LastModified Time Tobacco Smoking Status Never Smoker [facility] 11/15/2016 09:16:02 How Much Tobacco Do You [...] Diagnosis SNOMED-CT Code Diagnosis ICD10 Code Diagnosis IMO Codes Diagnosis Note [id number] VIANCA WRIGHT PA-C [facility] [address] [place] [address] 11/15/2016 09:00:39 11/15/2016 11:32:57 Lumbar spondylosis 923225782 M47.896 Lumbar radiculopathy 128 901817 M54.16 [id number] ADAN NICHOLAS MD [facility] [address] [place] [address] 11/24/2016 08:29:08 11/24/2016 09:18:31 Spondylolisthesis, grade 2 77843679 M43.10 [id number] ADAN NICHOLAS MD [facility] [address] [place] [address] 01/09/2017 10:20:45 01/09/2017 10:32:12 [id number] ADAN NICHOLAS MD [facility] [address] [place] [address] 01/26/2017 10:06:10 01/26/2017 11:16:31 Spondylolisthesis, grade 1 95857100 M43.10 Spinal kim nosis of lumbar region 59202115 M48.06 [id number] ADAN NICHOLAS MD [facility] [address] [place] [address] 04/04/2017 10:16:15 04/04/2017 11:00:40 Lumbar spondylosis 055075120 M47.512 [id number] ADAN NICHOLAS MD [facility] [address] [place] [address] 01/20/2022 13:54:41 01/21/2022 09:05:23 Lumbar spondylosis 367894083 M47.896 Health Concerns Section Related Observation LastModified by Organization Detai ls LastModified Time None Recorded Concern Status LastModified by Organization Details LastModified Time None Recorded Advance Directives Directive None Recorded Payers Insurance Date Sequence Insurance Name Policy Number Policy Wheeler Covered Member ID Wheeler Member ID Guarantor Name 11/25/2021 1 [place] [id number] Michael Jimenez [id number] Marylou Jimenez 01/17/2022 1 [place] Marylou Jimenez [id number] Marylou Jimenez 01/31/2022 2 AARP (MEDICARE SUPPLEMENT) Marylou Jimenez [id number] Marylou Jimenez Notes Date Note Type Note Provider Name and Address Organization Details Recorded Time 11/24/2016 text/html Dear Dr. Muir, I saw Mrs. Jimenez in the office [...] does not have osteoporosis. ADAN NICHOLAS MD [facility] [place], [address], [facility] 11/24/2016 09:09:56 01/26/2017 text/html I saw Ms. Jimenez in the office. I performed an L4-5 L5-S1 [...] any radicular leg pain. ADAN NICHOLAS MD [facility] [place], [address], [facility] 01/26/2017 11:12:00 04/04/2017 text/html I saw Mrs. [...] the day. 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 ADAN NICHOLAS MD [address] [place], [address], [facility] 04/04/2017 10:57:56 01/20/2022 text/html 66-year-old woman. I performed an L4-S1 posterior lumbar interbody fusion December 28, 2016. I last saw her in March 2017. She was doing great. 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 She's doing just fine until about [...] had no conservative treatment. ADAN NICHOLAS MD [address] [place] [address], [address], [facility] 01/20/2022 15:04:11 OBGyn Episode No OBEpisode recorded.
== END 2025-10-06 23:59 | disposition home or self-care (01) ==
LOC: RAD 12:46
PROVIDERS: PCP Family Medicine; Visit Provider Physician Assistant
DX: Z12.31 Encounter for screening mammogram for malignant neoplasm of breast (principal); Z00.00 Encounter for general adult medical examination without abnormal findings; M85.831 Other specified disorders of bone density and structure, right forearm; M81.0 Age-related osteoporosis without current pathological fracture; R92.323 Mammographic fibroglandular density, bilateral breasts
CPT/HCPCS: 77063; 77067; 77080